=== PATIENT | male | born 1955 | race Caucasian/White ===

== ENCOUNTER 2019-04-24 09:17 | Day surgery (SDC) | payer BC ==
[2019-04-20 11:07] VITALS: BMI 48.0
[2019-04-24] MEDS ORDERED: ceFAZolin SODIUM 1 GM VIAL ONE (11:41)
[2019-04-24] MEDS ORDERED: DEXAMETHASONE SOD PHOSPHATE 4 MG/1 ML VIAL ONE (11:41)
[2019-04-24] MEDS ORDERED: EPINEPHrine/PF 1 MG/1 ML (1:1,000) AMPULE ONE (11:41)
[2019-04-24] MEDS ORDERED: LIDOCAINE HCL/PF 2% SDV 5ML VIAL ONE (11:41)
[2019-04-24] MEDS ORDERED: ONDANSETRON 4 MG/2 ML VIAL ONE (11:41)
[2019-04-24] MEDS ORDERED: KETOROLAC TROMETHAMINE 30 MG/1 ML VIAL ONE (11:41)
[2019-04-24] MEDS ORDERED: PROPOFOL 20 ML ONE (11:41)
[2019-04-24] MEDS ORDERED: EPINEPHrine 1:1,000 1 MG/1 ML - 30ML VIAL (INJECTION) ONE (11:41)
[2019-04-24] MEDS ORDERED: BUPIVACAINE HCL/EPINEPHRINE/PF 30 ML VIAL IJ ONE (12:01)
[2019-04-24] MEDS ORDERED: BUPIVACAINE HCL/PF 2.5 MG/ML - 30 ML VIAL IJ ONE (12:02)
[2019-04-24] MEDS ORDERED: ceFAZolin SODIUM 1 GM VIAL IVPB ONE (12:22)
[2019-04-24] MEDS ORDERED: BUPIVACAINE HCL/PF 0.25% (2.5MG/ML) 10 ML VIAL IJ ONE (12:45)
[2019-04-24] MEDS ORDERED: PROMETHAZINE HCL 25 MG/1 ML VIAL IVPUSH PRN (13:13)
[2019-04-24] MEDS ORDERED: oxyCODONE HCL 5 MG TABLET PO PRN ×2 (13:13)
[2019-04-24] MEDS ORDERED: ONDANSETRON 4 MG/2 ML VIAL IVPUSH PRN (13:13)
[2019-04-24 15:06] VITALS: TEMP 97.8
[2019-04-24 15:09] VITALS: BP 131/70; PULSE 60
--- NOTE | 2019-04-25 13:10 | OP ---
DATE OF OPERATION: 04/24/2019 SURGEON: Gerson Rios MD ASSISSTANT: NAT Abad PREOPERATIVE DIAGNOSIS: 1. Left knee medial and lateral meniscal tears. 2. Left knee cartilage injury. 3. Left knee synovitis. POSTOPERATIVE DIAGNOSIS: 1. Left knee medial and lateral meniscal tears. 2. Left knee cartilage injury. 3. Left knee synovitis. PROCEDURE: 1. Left knee arthroscopy with partial meniscectomy of lateral and medial meniscus (CPT code 21291). 2. Left knee arthroscopy with chondroplasty and abrasoplasty (CPT code 55930). 3. Left knee arthroscopy with synovectomy (CPT code 33823).. FINDINGS: 1. Medial meniscus body and posterior horn tear, complex tear. 2. Lateral meniscus anterior tear, undersurface to central body. 3. Synovitis, patellofemoral, medial, lateral notch area with extensive synovitis medial, lateral and patellofemoral area. 4. 70% grade changes with large cartilage flap and interface between grade 4 and grade 2 changes with mechanical catching. 5. Diffuse grade 2-4 cartilage injury medial tibial plateau. 6. ACL and PCL intact. 7. Diffuse grade 1-2 cartilage injury lateral joint line. 8. Central grade 2-4 cartilage injury patella, patellofemoral trochlea with large cartilage flap anterior patellofemoral trochlea. DESCRIPTION OF PROCEDURE: Informed consent was obtained. The patient came to the operating room, where the lower extremity was prepped and draped in a sterile fashion. A tourniquet was placed on the upper thigh, but not inflated. Using standard arthroscopic technique, a lateral incision and portal was made to allow for introduction of the camera into the suprapatellar bursa. This was then taken to the medial joint line, where under direct visualization, a medial incision and portal was made. Excessive synovium noted in the medial, lateral and patellofemoral and notch area was removed by an upbiter, shaver and Bovie cautery. This was found to bring in inflammatory tissue into the joint surface, a source of pain and dysfunction. Probing of the medial and lateral meniscus found tears, as described in the findings. These were removed with the upbiter and shaver and taken back to a stable rim. Grade 2 to 3 degenerative changes were treated with a chondroplasty, removing all flaking surfaces with low-setting Bovie along the periphery to prevent further flaking. Grade 4 changes, as noted, were treated with an abrasoplasty, creating a bleeding surface at the bone/cartilage interface. Aggressive debridement with shaver/marshall created bleeding surface. Micro fracture also done when indicated in findings. All areas of the knee were once again reexamined. The knee was then drained and a single suture was placed in all portals. A sterile dressing was placed and the patient was transferred to the recovery room without complication. The PA listed above was present and assisted at surgery. Their presence was absolutely medically necessary for the completion of the procedure. They helped hold the arthroscopy, pass instruments (and implants when indicated) and the procedure could not have been completed without their assistance. GERSON RIOS M.D. [id number]
== END 2019-04-24 15:00 | disposition home or self-care (01) ==
LOC: FASU 09:17
PROVIDERS: ATTEND Orthopaedic Surgery
PROC: 0SBD4ZZ Excision of Left Knee Joint, Percutaneous Endoscopic Approach (ICD-10-PCS; 2019-04-24)
PROC: 0SBD4ZZ Excision of Left Knee Joint, Percutaneous Endoscopic Approach (ICD-10-PCS; 2019-04-24)
PROC: 0SBD4ZZ Excision of Left Knee Joint, Percutaneous Endoscopic Approach (ICD-10-PCS; principal; 2019-04-24 10:30)
DX: S83.242A Other tear of medial meniscus, current injury, left knee, initial encounter (principal); S83.282A Other tear of lateral meniscus, current injury, left knee, initial encounter; S83.8X2A Sprain of other specified parts of left knee, initial encounter; M65.862 Other synovitis and tenosynovitis, left lower leg; X58.XXXA Exposure to other specified factors, initial encounter; Y93.9 Activity, unspecified; Y92.9 Unspecified place or not applicable
CPT/HCPCS: 82962; 94760